=== PATIENT | male | born 1945 | race Caucasian/White ===

== ENCOUNTER 2021-09-13 12:19 | Emergency (ER) | payer MEDICARE ==
[2021-09-13 15:29] LABS: BASOPHIL 0.1 % (0-2); EOSINOPHIL 0.8 % (0-7); HCT 40.1 % (42.0-52.0); HGB 13.2 g/dl (13.2-18.0); LYMPHOCYTE 10.4 % (15-48); MCH 30.3 pg (25.0-31.0); MCHC 32.9 g/dL (32.0-36.0); MONOCYTE 5.6 % (0-12); MPV 10.9 fL (6.0-9.5); NEUTROPHIL 82.7 % (41-80); NRBC 0; PLT 209 K/uL (150-400); RBC 4.36 M/uL (4.70-6.00); RDW 12.9 % (11.5-14.0); WBC 11.3 K/uL (4.0-10.5)
[2021-09-13 15:35] LABS: INR 0.99 (0.9-1.2); PROTHROMBIN TIME 12.5 SECONDS (11.8-13.4); PTT 34.2 SECONDS (24.4-34.7)
[2021-09-13 15:36] LABS: D-DIMER 0.93 ug/mLFEU (0.00-0.41)
[2021-09-13 15:49] LABS: PRO-BNP 560 pg/mL (<450)
[2021-09-13 15:57] LABS: BILIRUBIN - TOTAL 0.6 mg/dL (0.2-1.0); C-REACTIVE PROTEIN 10.4 mg/dL (<=0.90); CREATININE 0.7 mg/dL (0.67-1.17); GLOBULIN (CALCULATION) 3.8 g/dL; MAGNESIUM 2.2 mg/dL (1.8-2.4); TOTAL PROTEIN 6.8 g/dL (6.4-8.2)
[2021-09-13] MEDS ORDERED: ONDANSETRON ODT4 MG PO (19:19)
[2021-09-13] MEDS ORDERED: VENTOLIN HFA18 GM INH (19:19)
== END 2021-09-13 20:38 | disposition home or self-care (01) ==
LOC: FER 12:19
PROVIDERS: Emergency Medicine
DX: U07.1 COVID-19 (principal); I10 Essential (primary) hypertension; Z23 Encounter for immunization
CPT/HCPCS: 36415; 36600; 71275; 80053; 82728; 82803; 83615; 83735; 83880; 84145; 84484; 85025; 85379; 85610; 85730; 86140; 93005; J7030; M0243; Q0244; Q9967